=== PATIENT | male | born 1990 | race African-American/Black ===

== ENCOUNTER 2017-03-02 21:32 | Emergency (ER) | payer SELFPAY ==
[2017-03-03] MEDS ORDERED: Ibuprofen TAB* 600 MG PO ONE (00:37)
--- NOTE | 2017-03-03 00:37 | ED ---
Respiratory - HPI Summary HPI Summary: 2 days of fever sore throat and cough (patient has asthma) - History of Current Complaint Chief Complaint: EDFever Stated Complaint: FEVER Time Seen by Provider: 03/03/17 00:29 Hx Obtained From: Patient Onset/Duration: Sudden Onset, Lasting Days - 2, Still Present Timing: Constant Initial Severity: Moderate Current Severity: Moderate Pain Intensity: 4 Character: Cough (Nonproductive) Sputum Amount: None Aggravating Factor(s): Nothing Alleviating Factor(s): Dose Of Medications - ibuprofen yesterday Associated Signs and Symptoms: Fever, Chills - Allergy/Home Medications Allergies/Adverse Reactions: Allergies Allergy/AdvReac Type Severity Reaction Status Date / Time No Known Allergies Allergy Verified 03/02/17 21:38 PMH/Surg Hx/FS Hx/Imm Hx Previously Healthy: No Endocrine/Hematology History: Denies: Hx Diabetes, Hx Thyroid Disease Cardiovascular History: Denies: Hx Hypertension Respiratory History: Reports: Hx Asthma Denies: Hx Chronic Obstructive Pulmonary Disease (COPD) GI History: Denies: Hx Ulcer - Cancer History Hx Hematologic Symptoms: No Hx Chemotherapy: No Hx Radiation Therapy: No Hx Palliative Cancer Treatment: No - Surgical History Surgery Procedure, Year, and Place: FOOT SURGERY AT 14 YOA - REMOVAL OF EXTRA TISSUE Hx Anesthesia Reactions: No - Immunization History Hx Pertussis Vaccination: Yes Immunizations Up to Date: Yes Infectious Disease History: No Infectious Disease History: Denies: Hx Hepatitis, Hx Human Immunodeficiency Virus (HIV), Traveled Outside the [place] in Last 30 Days - Family History Known Family History: Positive: None - Social History Occupation: Employed Full-time Lives: With Family Alcohol Use: None Substance Use Type: Reports: None Smoking Status (MU): Never Smoked Tobacco Review of Systems Constitutional: Other Positive: Fever, Chills, Fatigue Eyes: Negative ENT: Other Positive: Sore Throat Cardiovascular: Negative Respiratory: Other Positive: Cough Gastrointestinal: Negative Genitourinary: Negative Musculoskeletal: Negative Skin: Negative Neurological: Other Positive: Headache Psychological: Normal All Other Systems Reviewed And Are Negative: Yes Physical Exam Triage Information Reviewed: Yes Vital Signs On Initial Exam: Initial Vitals Temp Pulse Resp BP Pulse Ox 98.9 F 137 18 106/66 98 03/02/17 21:35 03/02/17 21:35 03/02/17 21:35 03/02/17 21:35 03/02/17 21:35 Vital Signs Reviewed: Yes Appearance: Positive: Ill-Appearing, Pain Distress - mild, Obese Skin: Positive: Warm, Skin Color Reflects Adequate Perfusion, Dry Head/Face: Positive: Normal Head/Face Inspection Eyes: Positive: Normal, EOMI, STEFANIE, Conjunctiva Clear ENT: Positive: Normal ENT inspection, Hearing grossly normal, Pharyngeal erythema, Tonsillar swelling. Negative: Nasal congestion, Nasal drainage, TMs normal, Tonsillar exudate, Trismus, Muffled/hoarse voice, Dental tenderness Neck: Positive: Supple, Nontender, Enlarged Nodes @ - anterior cervical swelling and tenderness Respiratory/Lung Sounds: Positive: Clear to Auscultation, Breath Sounds Present Cardiovascular: Positive: Normal, Pulses are Symmetrical in both Upper and Lower Extremities, Tachycardia - HR 130 temp re-check 101.8 At 1245am Musculoskeletal: Positive: Normal, Strength/ROM Intact Neurological: Positive: Normal, Sensory/Motor Intact, Alert, Oriented to Person Place, Time, CN Intact II-III Psychiatric: Positive: Normal AVPU Assessment: Alert - Julee Coma Scale Best Eye Response: 4 - Spontaneous Best Motor Response: 6 - Obeys Commands Best Verbal Response: 5 - Oriented Coma Scale Total: 15 Diagnostics - Vital Signs Vital Signs Temp Pulse Resp BP Pulse Ox 03/02/17 23:49 100.8 F 03/02/17 21:35 98.9 F 137 18 106/66 98 - Laboratory Lab Results: RST (+) Lab Statement: Any lab studies that have been ordered have been reviewed, and results considered in the medical decision making process. Re-Evaluation - Re-Evaluation First Eval Change: Improved - tepm 99.8 after Ibuprofen Disposition - Course Assessment/Plan: Amoxicillin tid for 10 days Ibuprofen/tylenol for pain fever, no work today follow with pcp prn - Diagnoses Provider Diagnoses: Acute streptococcal pharyngitis Discharge - Discharge Plan Condition: Stable Disposition: HOME Prescriptions: Amoxicillin PO (*) [Amoxicillin 500 MG CAP*] 500 mg PO TID #29 cap Patient Education Materials: Ibuprofen (By mouth), Strep Throat (ED) Forms: *Work Release Referrals: [facility] [place] [facility] [Outside] - If Needed
[2017-03-03] MEDS ORDERED: Amoxicillin PO (*) 500 MG CAP PO ONE ×2 (01:13→01:16)
[2017-03-03 01:30] VITALS: BP 132/71
== END 2017-03-03 01:28 | disposition home or self-care (01) ==
LOC: ED 21:32
DX: J02.0 Streptococcal pharyngitis (principal); J45.909 Unspecified asthma, uncomplicated
CPT/HCPCS: 87651; 99282; A9270-GY

== ENCOUNTER 2018-05-06 07:57 | Emergency (ER) | payer OTHER ==
--- NOTE | 2018-05-06 08:45 | UC ---
Throat Pain/Nasal Rodrigo HPI - HPI Summary HPI Summary: 27-year-old male comes to clinic today with a chief complaint of concern if he has strep throat not. For about a week he's been having some sore throat some runny nose. He tells me he gets recurrent strep throat and he's had several coworkers who have strep throat. Patient also reports he's been having cramping pain in his right leg for one week. He's been having episodes were both legs cramp he feels like a cramp moves up into his belly and his chest that he vomits and he feels better. His mother has had varicose veins and he's worried he might have a DVT. Also having some GERD symptoms. He takes some Tums and that decreases the GERD symptoms. Over eating makes the GERD symptoms worse. - History of Current Complaint Chief Complaint: UCGeneralIllness Stated Complaint: VOMITING COUGH PAINFUL LEGS Time Seen by Provider: 05/06/18 08:09 Pain Intensity: 4 - Allergies/Home Medications Allergies/Adverse Reactions: Allergies Allergy/AdvReac Type Severity Reaction Status Date / Time No Known Allergies Allergy Verified 03/02/17 21:38 PMH/Surg Hx/FS Hx/Imm Hx Previously Healthy: Yes - Surgical History Surgical History: Yes Surgery Procedure, Year, and Place: FOOT SURGERY AT 14 YOA - REMOVAL OF EXTRA TISSUE - Family History Known Family History: Positive: None, Other - VARICOSE VEINS-MOTHER - Social History Alcohol Use: None Substance Use Type: None Smoking Status (MU): Never Smoked Tobacco Review of Systems All Other Systems Reviewed And Are Negative: Yes Constitutional: Positive: Negative Skin: Positive: Negative Eyes: Positive: Negative ENT: Positive: Sore Throat, Nasal Discharge, Sinus Congestion Respiratory: Positive: Negative Cardiovascular: Positive: Negative Gastrointestinal: Positive: Vomiting Genitourinary: Positive: Negative Motor: Positive: Negative Neurovascular: Positive: Negative Musculoskeletal: Positive: Calf Tenderness - RIGHT Neurological: Positive: Negative Psychological: Positive: Negative Is Patient Immunocompromised?: No Physical Exam Triage Information Reviewed: Yes Appearance: Well-Appearing, No Pain Distress, Well-Nourished Vital Signs: Initial Vital Signs Temp 98.3 F 05/06/18 08:16 Pulse 93 05/06/18 08:16 Resp 16 05/06/18 08:16 BP 134/77 05/06/18 08:16 Pulse Ox 99 05/06/18 08:16 Vital Signs Reviewed: Yes Eye Exam: Normal Eyes: Positive: Conjunctiva Clear ENT: Positive: Pharyngeal erythema, Nasal congestion, Nasal drainage, TMs normal , Tonsillar swelling, Uvula midline Neck exam: Normal Neck: Positive: Supple Respiratory Exam: Normal Respiratory: Positive: Lungs clear, Normal breath sounds, No respiratory distress Cardiovascular Exam: Normal Cardiovascular: Positive: RRR Abdomen Description: Positive: Soft, Other: - MILD EPIGASTRIC TENDERNESS, NO REBOUND. Negative: Guarding Bowel Sounds: Positive: Present Musculoskeletal: Positive: Strength Intact, ROM Intact, No Edema, Other: - MILD TENDERNESS TO PALPATION RT CALF Neurological: Positive: Alert, Muscle Tone Normal Psychological Exam: Normal Psychological: Positive: Normal Response To Family, Age Appropriate Behavior Skin Exam: Normal Throat Pain/Nasal Course/Dx - Course Course Of Treatment: Order Information: VL LOWER EXT VEINS RIGHT. Accession Number: [id number]. CPT: 49628. HISTORY: RT CALF PAIN. COMPARISONS: None relevant. TECHNIQUE: Multiple transverse and longitudinal ultrasound images were obtained of the. right lower extremity from the level of the common femoral vein inferiorly through to the. infrapopliteal veins using grayscale, color Doppler, and spectral Doppler imaging with. and without compression and with augmentation. Comparison images were obtained of the. contralateral common femoral vein. FINDINGS: VEINS: The venous system of the right lower extremity is compressible throughout its. course, with normal flow on color Doppler imaging and normal response to augmentation on. spectral Doppler imaging. SOFT TISSUES: Unremarkable. OTHER FINDINGS: None. IMPRESSION: NO RIGHT LOWER EXTREMITY DEEP VEIN THROMBOSIS. . <Electronically signed by Amaury Vazquez MD in OV> 05/06/18 [id number]. I discussed the strep I discussed the strep and ultrasound results with the patient. The plan is to treat with amoxicillin for the positive strep. We will treat with omeprazole for GERD. Because of the bilateral leg cramping and check some blood work a CBC CMP. he is to follow-up his primary care doctor he is to get reevaluated sooner if worse. - Differential Dx/Diagnosis Provider Diagnosis: Strep pharyngitis, Pain in right lower leg, GERD (gastroesophageal reflux disease) Discharge - Sign-Out/Discharge Documenting (check all that apply): Patient Departure All imaging exams completed and their final reports reviewed: Yes - Discharge Plan Condition: Stable Disposition: HOME Prescriptions: Amoxicillin PO (*) [Amoxicillin 875 MG (*)] 875 mg PO BID #20 tab Omeprazole CAP* [Prilosec CAP* 20 MG] 20 mg PO BID #30 cap. Patient Education Materials: Strep Throat (ED) Forms: *Work Release Referrals: [facility] [place] [facility] [Outside] Additional Instructions: FOLLOW UP WITH YOUR DOCTOR IF NOT COMPLETELY IMPROVED. GET RECHECKED FOR ANY WORSENING OF YOUR CONDITION OR QUESTIONS OR CONCERNS. - Billing Disposition and Condition Condition: STABLE Disposition: Home
[2018-05-06 10:31] VITALS: BP 145/72
== END 2018-05-06 10:37 | disposition home or self-care (01) ==
LOC: UCEAST 07:57
DX: J02.0 Streptococcal pharyngitis (principal); M79.661 Pain in right lower leg; K21.9 Gastro-esophageal reflux disease without esophagitis
CPT/HCPCS: 87651; 99212; G0463

== ENCOUNTER 2018-09-08 14:39 | Emergency (ER) | payer OTHER ==
[2018-09-08 14:47] VITALS: BP 141/86
--- NOTE | 2018-09-08 15:10 | UC ---
Skin Complaint HPI - HPI Summary HPI Summary: 28 yo male with oozing vesiculs left foot noted days ago no hx DM - History of Current Complaint Chief Complaint: UCLowerExtremity Time Seen by Provider: 09/08/18 14:56 Stated Complaint: FOOT COMPLAINT Hx Obtained From: Patient Onset/Duration: Gradual Onset, Lasting Days Timing: Constant Onset Severity: Mild Current Severity: Mild Pain Intensity: 4 Pain Scale Used: 0-10 Numeric Location: Foot (Left) Character: Swelling, Pruritus, Painful Aggravating Factor(s): Nothing Alleviating Factor(s): Nothing Associated Signs & Symptoms: Positive: Rash - Allergy/Home Medications Allergies/Adverse Reactions: Allergies Allergy/AdvReac Type Severity Reaction Status Date / Time No Known Allergies Allergy Verified 03/02/17 21:38 PMH/Surg Hx/FS Hx/Imm Hx Previously Healthy: Yes - Surgical History Surgical History: Yes Surgery Procedure, Year, and Place: FOOT SURGERY AT 14 YOA - REMOVAL OF EXTRA TISSUE - Family History Known Family History: Positive: Hypertension, Other - VARICOSE VEINS-MOTHER - Social History Alcohol Use: None Substance Use Type: None Smoking Status (MU): Never Smoked Tobacco Review of Systems All Other Systems Reviewed And Are Negative: Yes Constitutional: Positive: Negative Skin: Positive: Rash Eyes: Positive: Negative ENT: Positive: Negative Respiratory: Positive: Negative Cardiovascular: Positive: Negative Gastrointestinal: Positive: Negative Genitourinary: Positive: Negative Motor: Positive: Negative Neurovascular: Positive: Negative Musculoskeletal: Positive: Negative Neurological: Positive: Negative Psychological: Positive: Negative Physical Exam Triage Information Reviewed: Yes Appearance: Well-Appearing, No Pain Distress, Well-Nourished Vital Signs: Initial Vital Signs Temp 97.9 F 09/08/18 14:42 Pulse 112 09/08/18 14:42 Resp 16 09/08/18 14:42 BP 141/86 09/08/18 14:42 Pulse Ox 98 09/08/18 14:42 Vital Signs Reviewed: Yes Eyes: Positive: Conjunctiva Clear ENT: Positive: Hearing grossly normal. Negative: Nasal congestion, Nasal drainage, Trismus, Muffled voice, Hoarse voice Neck: Positive: Supple, Nontender, No Lymphadenopathy Respiratory: Positive: Lungs clear, Normal breath sounds, No respiratory distress, No accessory muscle use Cardiovascular: Positive: RRR, Tachycardia Abdomen Description: Positive: Nontender Musculoskeletal: Positive: ROM Intact, No Edema Neurological: Positive: Alert Psychological Exam: Normal Skin: Positive: Other - macerated skin btw all toes/vesiculo-pustular rash on left foot Course/Dx - Diagnoses Provider Diagnosis: Tinea pedis, Elevated blood pressure reading without diagnosis of hypertension Discharge - Sign-Out/Discharge Documenting (check all that apply): Patient Departure All imaging exams completed and their final reports reviewed: No Studies - Discharge Plan Condition: Stable Disposition: HOME Prescriptions: Fluconazole 150 MG (NF) [Diflucan 150 mg (NF)] 150 mg PO WEEKLY #4 tab Patient Education Materials: Magnesium Sulfate (By mouth), Athlete's Foot (ED) Additional Instructions: epsom salt soaks both feet twice daily for 10 minutes gently dry feet then apply lotrimen AF (OTC) between toes and over areas with sores do this for 2-4 weeks your blood sugar was normal your BP and pulse rate are a little high get rechecked by your MD in 2-4 weeks - Billing Disposition and Condition Condition: STABLE Disposition: Home
--- NOTE | 2018-09-08 22:01 | UC ---
- Progress Note Progress Note: notify pt keflex 500 4x day ERxed Course/Dx - Diagnoses Provider Diagnoses: Tinea pedis, Elevated blood pressure reading without diagnosis of hypertension Discharge - Sign-Out/Discharge Documenting (check all that apply): Post-Discharge Follow Up All imaging exams completed and their final reports reviewed: No Studies - Discharge Plan Condition: Stable Disposition: HOME Prescriptions: Cephalexin CAP* [Keflex CAP*] 500 mg PO QID #28 cap Fluconazole 150 MG (NF) [Diflucan 150 mg (NF)] 150 mg PO WEEKLY #4 tab Patient Education Materials: Magnesium Sulfate (By mouth), Athlete's Foot (ED) Referrals: No Primary Care Phys,NOPCP [Primary Care Provider] - Additional Instructions: epsom salt soaks both feet twice daily for 10 minutes gently dry feet then apply lotrimen AF (OTC) between toes and over areas with sores do this for 2-4 weeks your blood sugar was normal your BP and pulse rate are a little high get rechecked by your MD in 2-4 weeks - Billing Disposition and Condition Condition: STABLE Disposition: Home
== END 2018-09-08 15:30 | disposition home or self-care (01) ==
LOC: UCEAST 14:39
DX: B35.3 Tinea pedis (principal); R03.0 Elevated blood-pressure reading, without diagnosis of hypertension
CPT/HCPCS: 87070; 87077; 87186; 87205; 87640; 87641; 99212; G0463

== ENCOUNTER 2019-02-25 18:08 | Emergency (ER) | payer OTHER ==
[2019-02-25 18:20] VITALS: BP 130/73
--- NOTE | 2019-02-25 18:47 | UC ---
Throat Pain/Nasal Rodrigo HPI - HPI Summary HPI Summary: 28-year-old male whose had a sore throat all week long. He was seen at [facility] and had a negative strep test there and Thursday. He states the fever broke on Thursday but he still has a sore throat today. - History of Current Complaint Chief Complaint: UCGeneralIllness Stated Complaint: ST Time Seen by Provider: 02/25/19 18:46 Hx Obtained From: Patient Onset/Duration: Gradual Onset Severity: Mild Pain Intensity: 6 Cough: Nonproductive Associated Signs & Symptoms: Positive: Nasal Discharge - Patient continues with head congestion., Fever - Fever broke 2 days ago. - Allergies/Home Medications Allergies/Adverse Reactions: Allergies Allergy/AdvReac Type Severity Reaction Status Date / Time No Known Allergies Allergy Verified 02/25/19 18:20 Home Medications: Home Medications NK [No Home Medications Reported] 02/25/19 [History Confirmed 02/25/19] PMH/Surg Hx/FS Hx/Imm Hx Previously Healthy: Yes Respiratory History: Asthma - Surgical History Surgical History: Yes Surgery Procedure, Year, and Place: FOOT SURGERY AT 14 YOA - REMOVAL OF EXTRA TISSUE - Family History Known Family History: Positive: Hypertension, Other - VARICOSE VEINS-MOTHER - Social History Alcohol Use: Rare Substance Use Type: None Smoking Status (MU): Never Smoked Tobacco Review of Systems All Other Systems Reviewed And Are Negative: Yes Constitutional: Positive: Fever - Fever broke 2 days ago. ENT: Positive: Sore Throat, Nasal Discharge, Sinus Congestion Is Patient Immunocompromised?: No Physical Exam Triage Information Reviewed: Yes Appearance: Well-Appearing, No Pain Distress, Well-Nourished Vital Signs: Initial Vital Signs Temp 98.9 F 02/25/19 18:15 Pulse 109 02/25/19 18:15 Resp 18 02/25/19 18:15 BP 130/73 02/25/19 18:15 Pulse Ox 99 02/25/19 18:15 Vital Signs Reviewed: Yes Eyes: Positive: Conjunctiva Clear ENT: Positive: Pharynx normal - Patient has some yellow thick postnasal drainage., Nasal congestion, Nasal drainage, TMs normal, Uvula midline Neck: Positive: Supple, Nontender, No Lymphadenopathy Respiratory: Positive: Lungs clear, Normal breath sounds, No respiratory distress, No accessory muscle use Cardiovascular: Positive: RRR, No Murmur, Pulses Normal, Brisk Capillary Refill Musculoskeletal Exam: Normal Neurological Exam: Normal Psychological Exam: Normal Skin Exam: Normal Throat Pain/Nasal Course/Dx - Course Course Of Treatment: Rapid strep test was negative. Patient has been comfortable here. He is to increase fluids and use throat lozenges or warm saltwater gargles for comfort. He is to follow-up with his primary care provider or [facility] in 3 or 4 days if no improvement. - Differential Dx/Diagnosis Provider Diagnosis: Pharyngitis, URI (upper respiratory infection) Discharge ED - Sign-Out/Discharge Documenting (check all that apply): Patient Departure All imaging exams completed and their final reports reviewed: No Studies - Discharge Plan Condition: Good Disposition: HOME Patient Education Materials: Pharyngitis (ED) Referrals: No Primary Care Phys,NOPCP [Primary Care Provider] - [facility] [Outside] Additional Instructions: Increase fluids, warm saltwater gargles, throat lozenges. Definite follow-up with [facility] or a primary care provider if no improvement in 3 or 4 days. - Billing Disposition and Condition Condition: GOOD Disposition: Home
== END 2019-02-25 19:07 | disposition home or self-care (01) ==
LOC: UCCORT 18:08
DX: J02.9 Acute pharyngitis, unspecified (principal); J45.909 Unspecified asthma, uncomplicated
CPT/HCPCS: 87651; 99211; G0463